=== PATIENT | male | born 1975 | race Caucasian/White ===

== ENCOUNTER → 2021-03-31 | Outpatient (CLI) | payer OTHER ==
[~2021-03-31] MED LIST: ALPRAZOLAM 0.50.5 M1 PO; ASPIRIN EC325 MG PO; BACTRIM 400-801 EACH PO; CEFAZOLIN 1GM VI1 G1 IV; KEFLEX500 MG PO; LOSARTAN POTASS50 MG PO; MULTI VITAMIN1 EACH PO; NEURONTIN 300M300 M2 PO; NORCO5 PO; OMEPRAZOLE40 MG PO; PRAZOSIN HCL1 MG PO; TRAMADOL 50 MG50 MG PO; VICODIN 5-5001 EACH PO
[2021-03-31 09:30] LABS: HEMATOCRIT 47.1 % (42.0-52.0); HEMOGLOBIN 15.5 gm/dL (14.0-18.0); MCH 30.2 pg (26.0-34.0); MCHC 32.8 g/dL (28.0-37.0); MCV 91.9 fL (80.0-100.0); RBC 5.13 mil/uL (4.50-6.00); RDW 13.5 % (10.5-14.5); WBC 4.7 thou/uL (4.0-11.0)
--- NOTE | 2021-03-31 09:30 | EKG ---
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
[2021-03-31 09:32] LABS: URINE BILIRUBIN NEGATIVE (Negative); URINE BLOOD NEGATIVE (Negative); URINE CLARITY CLEAR; URINE COLOR YELLOW; URINE GLUCOSE-RANDOM* NEGATIVE (Negative); URINE KETONES TRACE (Negative); URINE LEUKOCYTES-REFLEX NEGATIVE (Negative); URINE NITRITE-REFLEX NEGATIVE (Negative); URINE PROTEIN (DIPSTICK) NEGATIVE (Negative); URINE UROBILINOGEN 0.2 E.U./dl (0.2-1.0)
[2021-03-31 09:41] LABS: ALBUMIN 3.9 g/dL (3.4-5.0); CALCIUM 8.5 mg/dL (8.5-10.1); CREATININE 0.9 mg/dL (0.7-1.3); POTASSIUM 4.5 mmol/L (3.5-5.1)
[2021-03-31 10:09] LABS: INR 1.05; PROTIME 11.4 Seconds (10.5-12.1)
== END ==
LOC: PAC
PROVIDERS: ATTEND Orthopaedic Surgery
DX: Z01.818 Encounter for other preprocedural examination (principal); I51.7 Cardiomegaly; M17.11 Unilateral primary osteoarthritis, right knee

== ENCOUNTER 2021-04-27 20:47 | Emergency (ER) | payer OTHER ==
[~2021-04-27] VITALS: Ht 193 cm; Wt 93.0 kg
[2021-04-27] MEDS ORDERED: OXYCODONE-APAP1 EAC4 PO (20:55)
[2021-04-27 22:15] LABS: ABSOLUTE NEUTROPHILS 5.2 thou/uL (1.4-8.2); BASOPHILS 0.9 % (0.0-2.0); EOSINOPHILS 4.4 % (0.0-3.0); HEMOGLOBIN 13.8 gm/dL (14.0-18.0); LYMPHOCYTES 16.4 % (24.0-44.0); MCH 31.1 pg (26.0-34.0); MCHC 33.8 g/dL (28.0-37.0); MONOCYTES 4.3 % (1.0-8.0); PLATELET COUNT 575 thou/uL (150-400); RBC 4.45 mil/uL (4.50-6.00); RDW 13.7 % (10.5-14.5); WBC 7.1 thou/uL (4.0-11.0)
[2021-04-27 22:18] LABS: CALCIUM 8.5 mg/dL (8.5-10.1); CREATININE 0.9 mg/dL (0.7-1.3); POTASSIUM 3.4 mmol/L (3.5-5.1)
[2021-04-27 22:35] LABS: URINE BILIRUBIN NEGATIVE (Negative); URINE BLOOD NEGATIVE (Negative); URINE CLARITY CLEAR; URINE COLOR YELLOW; URINE GLUCOSE-RANDOM* NEGATIVE (Negative); URINE KETONES NEGATIVE (Negative); URINE LEUKOCYTES-REFLEX NEGATIVE (Negative); URINE NITRITE-REFLEX NEGATIVE (Negative); URINE PROTEIN (DIPSTICK) NEGATIVE (Negative); URINE SPECIFIC GRAVITY >= 1.030 (1.005-1.035); URINE UROBILINOGEN 0.2 E.U./dl (0.2-1.0)
[2021-04-28] MEDS ORDERED: CEPHALEXIN500 MG PO (00:09)
[2021-04-28 00:17] VITALS: BP 134/82
== END 2021-04-28 00:18 | disposition home or self-care (01) ==
LOC: ER 20:47
PROVIDERS: Student in an Organized Health Care Education/Training Program
DX: M25.461 Effusion, right knee (principal); Z20.822 Contact with and (suspected) exposure to COVID-19; M25.561 Pain in right knee; R50.82 Postprocedural fever; I10 Essential (primary) hypertension; K21.9 Gastro-esophageal reflux disease without esophagitis; F41.9 Anxiety disorder, unspecified; I48.91 Unspecified atrial fibrillation; Z89.201 Acquired absence of right upper limb, unspecified level; Z98.890 Other specified postprocedural states; Z79.891 Long term (current) use of opiate analgesic; Z79.82 Long term (current) use of aspirin; Z79.899 Other long term (current) drug therapy; Z79.1 Long term (current) use of non-steroidal anti-inflammatories (NSAID)